=== PATIENT | female | born 1980 | race Caucasian/White ===

== ENCOUNTER 2017-05-31 18:55 | Emergency (ER) | payer OTHER ==
[2017-05-31 19:09] VITALS: BP 137/86
[2017-05-31] MEDS ORDERED: metroNIDAZOLE 250 MG TABLET PO STA (20:28)
[2017-05-31] MEDS ORDERED: SULFAMETH/TRIMETH DS 800/160 MG TABLET PO STA (20:28)
[2017-05-31] MEDS ORDERED: TETANUS/DIPHTHERIA/PERTUSSIS 0.5 ML SYRINGE IM ONE ×2 (20:28→20:41)
--- NOTE | 2017-05-31 20:32 | ED Physician Documentation ---
PD HPI ANIMAL BITE - Stated complaint Stated Complaint: DOG BITE - Chief complaint Chief Complaint: Wound - History obtained from History obtained from: Patient - History of Present Illness Location of injury(ies): Left hand Details of the event: Dog, Pet animal, Immunized, Provoked (trimming nails) Timing - onset: Today Timing - duration: Hours (1) Timing - details: Abrupt onset Pain level max: 3 Pain level now: 3 Improved by: Rest Worsened by: Moving, Palpating Associated symptoms: No: Weakness, Numbness, Tingling, Swelling Contributing factors: No: Immunocompromised, Asplenic, Anticoagulated, Un/under immunized Recently seen: Not recently seen Review of Systems : denies: Now EGA Neurologic: denies: Focal weakness, Numbness PD PAST MEDICAL HISTORY - Past Medical History Past Medical History: Yes Endocrine/Autoimmune: HyPOthyroidism - Past Surgical History 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 - Present Medications Home Medications: Ambulatory Orders Medication Instructions Recorded Confirmed Levothyroxine [Synthroid] 112 mcg PO QDAC 05/31/17 05/31/17 Metronidazole [Flagyl] 500 mg PO TID #30 tablet 05/31/17 Sulfamethox/Trimeth 800/160 1 each PO BID #20 tablet 05/31/17 [Bactrim Ds 800/160] - Allergies Allergies/Adverse Reactions: Allergies Allergy/AdvReac Type Severity Reaction Status Date / Time amoxicillin Allergy Hives Verified 05/31/17 19:09 - Social History Does the pt smoke?: No Smoking Status: Never smoker Does the pt drink ETOH?: Yes ETOH Use: Wine Does the pt have substance abuse?: No - Immunizations Immunizations are current?: No Immunizations: TDAP >10years/unknown - POLST Patient has POLST: No PD ED PE NORMAL - Vitals Vital signs reviewed: Yes - General General: Alert and oriented X 3, No acute distress - Derm Derm: Warm and dry - Extremities Extremities: Other (L hand - 2 small puncture wounds to the dorsum of the hand and palmar aspect. not through and through. no bony tenderness. NVI. FROM without pain. ) - Neuro Neuro: Alert and oriented X 3 Results - Vitals Vitals: Oxygen O2 Source Room air PD MEDICAL DECISION MAKING - ED course Complexity details: considered differential, d/w patient ED course: Patient is a 37-year-old female with a dog bite to the left hand. None of the small puncture wounds require repair. Neurovascularly intact. Full range of motion. No evidence of bony injury or tendon injury. Wounds were aggressively cleansed and bandaged. Will place on antibiotics for home. She is allergic to amoxicillin. Patient is right-handed. Warnings of infection and instructions on wound care given at bedside. Also counseled on how to minimize scarring. Patient counseled regarding signs and symptoms for which I believe and urgent re -evaluation would be necessary. Patient with good understanding of and agreement to plan and is comfortable going home at this time This document was made in part using voice recognition software. While efforts are made to proofread this document, sound alike and grammatical errors may occur. Departure - Departure Disposition: 01 Home, Self Care Clinical Impression: Dog bite of hand Qualifiers: Encounter type: initial encounter Laterality: left Qualified Code(s): S61.452A - Open bite of left hand, initial encounter Condition: Good Instructions: ED Bite Animal General Follow-Up: your,doctor in 3 days for wound check [Other] Prescriptions: Metronidazole [Flagyl] 500 mg PO TID #30 tablet Sulfamethox/Trimeth 800/160 [Bactrim Ds 800/160] 1 each PO BID #20 tablet Comments: Return if you worsen. Take all antibiotics until gone. Do not drink alcohol with the flagyl as this will make you ill. Return if you notice redness, swelling or drainage from the wound. Discharge Date/Time: 05/31/17 20:50
[2017-05-31] MEDS ORDERED: metroNIDAZOLE 250 MG TABLET PO ONE (20:40)
[2017-05-31] MEDS ORDERED: SULFAMETH/TRIMETH DS 800/160 MG TABLET PO ONE (20:41)
== END 2017-05-31 20:50 | disposition home or self-care (01) ==
LOC: ED 18:55
DX: S61.432A Puncture wound without foreign body of left hand, initial encounter (principal); W54.0XXA Bitten by dog, initial encounter; Y92.019 Unspecified place in single-family (private) house as the place of occurrence of the external cause; E03.9 Hypothyroidism, unspecified; Z23 Encounter for immunization
CPT/HCPCS: 90471; 90715; 99283; A9270